=== PATIENT | male | born 1990 | race Caucasian/White ===

== ENCOUNTER 2017-11-25 23:50 | Emergency (ER) | payer OTHER ==
--- NOTE | 2017-11-26 00:03 | PDOC ---
History of Present Illness - General Chief Complaint: Injury Stated Complaint: FALL Time Seen by Provider: 11/25/17 23:55 History Source: Patient Exam Limitations: No Limitations - History of Present Illness Initial Comments: 11/26/17 00:00 This is a 27 her old male who comes in complaining of status post fall. Patient was bringing some groceries when he tripped on a step and fell injuring his right knee left wrist and back.. Patient did not hit his head, patient did not pass out. Patient denies any neurological complaints. PAST MEDICAL HISTORY: no significant history PAST SURGICAL HISTORY: no significant history FAMILY HISTORY: no pertinant history SOCIAL HISTORY: Pt lives with family and is employed. MEDICATIONS: reviewed ALLERGIES: As per nursing notes Review of Systems General: No fevers or chills, no weakness, no weight loss HEENT: No change in vision. No sore throat,. No ear pain CardioVascular: No chest pain or shortness of breath Respiratory:No cough, or wheezing. Gastrointestinal: no nausea, vomitting, diarrhea or constipation, No rectal bleeding Genitourinary: No dysuria, hematuria, or frequency Musculoskeletal: Right knee left wrist injury as per history of present illness Neurologic: No headache, vertigo, dizziness or loss of consciousness Psychiatric: nor depression Skin: No rashes or easy bruising Endocrine: no increased thirst or abnormal weight change Allergic: no skin or latex allergy All other systems reviewed and normal GENERAL: The patient is awake, alert, and fully oriented, in no acute distress. HEAD: Normal with no signs of trauma. Cervical spine is nontender to palpation with full range of motion of the neck without pain BACK: The thoracic spine and lumbar spine are nontender to palpation there is some muscle spasm and discomfort on palpation of the left upper back. EYES: Pupils equal, round and reactive to light, extraocular movements intact, sclera anicteric, conjunctiva clear. EXTREMITIES: Left shoulder there is no bony tenderness on palpation. Left wrist: There is swelling and ecchymosis with tenderness on palpation over the distal radius. There is questionable deformity neurovascular is intact Right knee: There is some tenderness on palpation over the anterior right knee with a palpable effusion, there is no ligamentous instability neurovascular distal is intact NEUROLOGICAL: Normal speech, normal gait. grossly intact PSYCH: Normal mood, normal affect. SKIN: Warm, Dry, normal turgor, no rashes or lesions noted. 11/26/17 00:38 X-rays knee no acute pathology Wrist no acute pathology Assessment and plan: This is a 27-year-old male who comes in complaining of a fall and pain to his left wrist and right knee. Patient had x-rays that were negative for any fractures or dislocations. Patient given a splint on his left wrist and Gordo wrap to his knee. Patient to anti-inflammatories prior to coming in Patient discharged home will follow-up with his primary care doctor as needed Past History - Past Medical History Allergies/Adverse Reactions: Allergies Allergy/AdvReac Type Severity Reaction Status Date / Time No Known Drug Allergies Allergy Verified 11/26/17 00:11 pineapple Allergy Verified 11/26/17 00:11 Home Medications: Ambulatory Orders NK [No Known Home Medication] 11/26/17 *DC/Admit/Observation/Transfer Diagnosis at time of Disposition: Left wrist sprain Qualifiers: Encounter type: initial encounter Qualified Code(s): S63.502A - Unspecified sprain of left wrist, initial encounter Right knee sprain Qualifiers: Encounter type: initial encounter Involved ligament of knee: unspecified ligament Qualified Code(s): S83.91XA - Sprain of unspecified site of right knee , initial encounter Upper back strain Qualifiers: Encounter type: initial encounter Qualified Code(s): S29.012A - Strain of muscle and tendon of back wall of thorax, initial encounter - Discharge Dispostion Disposition: HOME Condition at time of disposition: Stable Admit: No - Referrals - Patient Instructions Additional Instructions: Tylenol or Motrin as needed for pain. Wear the G[place] wrap and splint for additional support and comfort. Return to the emergency department immediately with ANY new, persistent or worsening symptoms. Continue any medications as previously prescribed by your physician. You should follow up with your primary doctor as soon as possible regarding today's emergency department visit. . Please make sure your doctor reviews the results of your emergency evaluation. Thank you for coming to the Emergency Department today for your care. It was a pleasure to see you today. Please note that your evaluation is INCOMPLETE until you follow-up with your doctor. - Post Discharge Activity
[2017-11-26 00:10] VITALS: BP 125/65; PULSE 88; TEMP 98.5; BMI 47.2
== END 2017-11-26 00:49 | disposition home or self-care (01) ==
LOC: FER 23:50
PROC: 2W3DX1Z Immobilization of Left Lower Arm using Splint (ICD-10-PCS; principal; 2017-11-25)
DX: S63.502A Unspecified sprain of left wrist, initial encounter (principal); S83.91XA Sprain of unspecified site of right knee, initial encounter; S29.012A Strain of muscle and tendon of back wall of thorax, initial encounter; W18.39XA Other fall on same level, initial encounter; Y93.89 Activity, other specified; Y92.9 Unspecified place or not applicable
CPT/HCPCS: 73110-TC-LT; 73562-TC-RT; 99282-25